=== PATIENT | male | born 1945 | race Caucasian/White ===

== ENCOUNTER 2017-09-24 17:36 | Emergency (ER) | payer MEDICARE, OTHER | END 2017-09-24 18:04 | disposition left against medical advice (07) | LOC: ED 17:36 | DX: Z53.21 Procedure and treatment not carried out due to patient leaving prior to being seen by health care provider (principal) ==

== ENCOUNTER 2019-01-24 17:26 | Emergency (ER) | payer MEDICARE, OTHER ==
--- NOTE | 2019-01-24 18:37 | ED Physician Documentation ---
PD HPI UPPER EXT INJURY - Stated complaint Stated Complaint: RT ARM INJ - Chief complaint Chief Complaint: Laceration - History obtained from History obtained from: Patient - History of Present Illness Location: Right, Forearm Type of injury: Laceration Where injury occurred: Home Timing - onset: How many hours ago (8) Timing - details: Abrupt onset Pain level now: 0 Improved by: Dressing Associated symptoms: No: Weakness, Numbness, Tingling, Swelling, Discolored Contributing factors: Anticoagulated (Takes a regular aspirin every other day) Recently seen: Not recently seen - Additonal information Additional information: This is a 73-year-old who was using a chainsaw earlier in the day today when he just barely neck the back of his right forearm. He put a bandage on it and finished working out the day and went home to take a shower and it opened up again and he could get the bleeding controlled. He says there is no pain. T here is no limitation in movement of his fingers, no numbness or tingling down into his fingers. He takes a regular aspirin every other day. He is unknown when his last tetanus vaccine was. Review of Systems Skin: reports: Laceration (s) Musculoskeletal: denies: Extremity pain, Joint pain, Extremity swelling Neurologic: denies: Numbness PD PAST MEDICAL HISTORY - Allergies Allergies/Adverse Reactions: Allergies Allergy/AdvReac Type Severity Reaction Status Date / Time No Known Drug Allergies Allergy Verified 01/24/19 17:41 - Immunizations Immunizations: TDAP >10years/unknown PD ED PE NORMAL - Vitals Vital signs reviewed: Yes - General General: Alert and oriented X 3, No acute distress, Well developed/nourished - HEENT HEENT: Atraumatic - Cardiac Cardiac: RRR - Respiratory Respiratory: No respiratory distress - Derm Derm: Other (1-1/2 to 2 cm laceration on the radial dorsal aspect of the right forearm that is superficial except for about 2 mm that is deep to epidermis and has clot overlying it.) - Extremities Extremities: No tenderness to palpate - Neuro Neuro: Alert and oriented X 3, No motor deficit, No sensory deficit, Normal speech Results - Vitals Vitals: Vital Signs - 24 hr 01/24/19 17:41 Temperature 36.5 C Heart Rate 80 O2 Saturation 97 Oxygen O2 Source Room air PD MEDICAL DECISION MAKING - ED course Complexity details: d/w patient ED course: Most of this laceration is superficial in the epidermis except for very small portion it probably nicked a small underlying vein in there. It is actively clotted at this time without active bleeding. I do not think closing with sutures would really provide much at this point. This was discussed with the patient and he does not want it sutured anyway.He should leave our bandage on for 24 to 36 hours. Be very careful with cleansing. Hold direct pressure if it continues bleeding. He is updated on his tetanus vaccine. Departure - Departure Disposition: 01 Home, Self Care Clinical Impression: Abrasion Instructions: ED Abrasion Comments: Keep our bandage on 24 to 36 hours. After removal of the bandage cleanse gently with soap and water. Hold direct pressure if it begins bleeding. Hold your aspirin for the next couple of doses. Return if any signs of infection to include spreading redness, fever, increasing pain or purulent drainage.
[2019-01-24] MEDS ORDERED: TETANUS/DIPHTHERIA/PERTUSSIS 0.5 ML SYRINGE IM ONE (18:56)
[2019-01-24] MEDS ORDERED: BACITRACIN ZINC OINT 14 GM TOP ONE (18:59)
[2019-01-24 19:15] VITALS: BP 121/79
== END 2019-01-24 19:15 | disposition home or self-care (01) ==
LOC: ED 17:26
DX: S51.811A Laceration without foreign body of right forearm, initial encounter (principal); W45.8XXA Other foreign body or object entering through skin, initial encounter; Y93.89 Activity, other specified; Y92.009 Unspecified place in unspecified non-institutional (private) residence as the place of occurrence of the external cause; Z79.82 Long term (current) use of aspirin
CPT/HCPCS: 90471; 90715; 99282; 99283; A9270